=== PATIENT | female | born 1975 | race African-American/Black ===

== ENCOUNTER 2019-04-05 10:54 | Emergency (ER) | payer MEDICAID ==
[~2019-04-05] VITALS: Ht 170.2 cm; Wt 57.0 kg
[2019-04-05 13:13] LABS: CHLORIDE 105 mEq/L (98-107)
[2019-04-05 13:21] LABS: EOSINOPHILS % 0.2 % (0.0-5.0); HEMATOCRIT. 39.9 % (36.0-48.0); HEMOGLOBIN. 13.6 g/dL (12.0-16.0); LYMPHOCYTES % 24.1 % (20.0-50.0); MEAN CORPUSCULAR HEMOGLOBIN 32.9 pg (28.0-32.0); MEAN CORPUSCULAR VOLUME 96.2 fL (81.0-99.0); MONOCYTES % 8.3 % (2.0-8.0); NEUTROPHILS % 66.4 % (40.0-76.0); PLATELET 204 x1000/uL (130-400); RED BLOOD CELL COUNT 4.14 mill/uL (4.2-5.4); RED CELL DISTRIBUTION WIDTH 12.3 % (11.6-14.6)
[2019-04-05 13:24] LABS: T4 FREE 1.05 ng/dL (0.76-1.46)
[2019-04-05 14:40] VITALS: BP 120/76
== END 2019-04-05 14:43 | disposition home or self-care (01) ==
LOC: ER 10:54
DX: R42 Dizziness and giddiness (principal); R53.1 Weakness
CPT/HCPCS: 36415; 84439; 84443; 93005; 99284